=== PATIENT | female | born 1965 | race Two or more races ===

== ENCOUNTER 2024-06-18 20:11 | Emergency (ER) | payer BC, SELFPAY ==
[2024-06-18 20:12] VITALS: BP 122/78; PULSE 73; RESP 17; TEMP 36.7; O2SAT 96; BMI 34.0
--- NOTE | 2024-06-18 20:51 | XR_ITS ---
Examination: CT abdomen with intravenous contrast CT pelvis with intravenous contrast 2-D coronal reconstructions 2-D sagittal reconstructions Date and time of exam:June 18, 2024 1025 hrs. Indications: Onset left lower abdominal pain beginning 2 days ago. CTDI: vol (mGy) 10.9 DLP: (mGycm) 614 Technique: Multiple axial sections of the abdomen and pelvis have been obtained. 64 slice high-resolution scanner used. 3 mm axial sections have been obtained, post intravenous injection 60 cc [id number] 2-D sagittal, coronal reconstructions obtained. Low dose protocols were performed. One or more of the following dose reduction techniques were used; automated exposure control, adjustment of the mA and/or KV according to patient size, use of iterative reconstruction technique. Findings: No focal liver or splenic lesion Absent gallbladder No pancreatic mass No renal or ureteral calculi, no hydronephrosis Aorta normal size Normal appendix No bowel obstruction No diverticulitis Urinary bladder intact. Moderate osteopenia Impression: No renal or ureteral calculi, no hydronephrosis Normal appendix No bowel obstruction diverticulitis or free air
--- NOTE | 2024-06-18 20:52 | EDRME_ITS ---
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 Chief Complaint: Abdominal Pain Vital signs: Vital Signs Temperature 98.0 F 06/18/24 20:12 Pulse Rate 73 06/18/24 20:12 Respiratory Rate 17 06/18/24 20:12 Blood Pressure 122/78 06/18/24 20:12 Pulse Oximetry (%) 96 06/18/24 20:12 Oxygen Delivery Method Room Air 06/18/24 20:12
[2024-06-18 21:21] LABS: Collection Type, Urine Clean Catch; Squamous Epithelial Cell,Urine 0 /hpf (0-5); WBC,Urine 0 /hpf (0-5)
[2024-06-18 21:26] LABS: Basophils % (Auto) 1 % (0-2.5); Eosinophils # (Auto) 0.2 Thou/mm3 (0.0-0.5); Eosinophils % (Auto) 3 % (0-10); Hematocrit 42.2 % (36.0-46.0); Hemoglobin 14.1 g/dL (12.0-16.0); Immature Granulocytes % (Auto) 0 % (0-0); Immature Granulocytes Auto 0.02 Thou/mm3 (0.00-0.00); Lymphocytes # (Auto) 2.4 Thou/mm3 (1.0-4.8); Lymphocytes % (Auto) 31 % (10-50); Mean Corpuscular HGB Conc 33.4 g/dl (31.0-37.0); Mean Corpuscular Hemoglobin 27.9 pg (25.0-35.0); Mean Corpuscular Volume 84 fL (80-100); Monocytes # (Auto) 0.6 Thou/mm3 (0.0-0.8); Monocytes % (Auto) 7 % (0-12); Neutrophils # (Auto) 4.6 Thou/mm3 (1.8-7.7); Neutrophils % (Auto) 58 % (37-80); Nucleated Red Blood Cell % 0 /100 WBC (0); Platelet Count 225 Thou/mm3 (140-440); RDW Standard Deviation 40.9 fL (36.4-46.3); Red Blood Count 5.05 Miln/mm3 (4.00-5.20); White Blood Count 7.9 Thou/mm3 (3.6-11.0)
[2024-06-18 21:31] LABS: Bilirubin,Urine Negative (Negative); Blood,Urine Trace (Negative); Clarity,Urine Clear (Clear/Hazy); Color,Urine Colorless (Lt Yel-Yel); Culture Indicated,Urine Not Indicated; Glucose, Urine Negative (Negative); Ketones,Urine Negative (Negative); Leukocyte Esterase,Urine Negative (Negative); Nitrite,Urine Negative (Negative); PH,Urine 6.5 (5.0-7.0); Protein,Urine Negative (Neg - Trace); RBC,Urine 1 /hpf (0-3); Specific Gravity,Urine 1.007 (1.001-1.035); Urobilinogen,Urine Negative mg/dL (0.0-1.0)
[2024-06-18 21:44] LABS: Alanine Aminotransferase 19 U/L (10-49); Albumin, Serum 4.9 gm/dL (3.5-5.0); Albumin/Globulin Ratio 1.3 (1.2-2.2); Alkaline Phosphatase 90 U/L (46-116); Anion Gap 8 (7-16); Aspartate Amino Transferase 20 U/L (0-34); BUN/Creatinine Ratio 15 Ratio (12-20); Bilirubin,Total 0.7 mg/dL (0.3-1.2); Blood Urea Nitrogen 9 mg/dL (9-23); Calcium 10.4 mg/dL (8.3-10.6); Calcium (Corrected) 10.4 mg/dL (8.5-10.1); Chloride 99 mMol/L (98-107); Creatinine (Component) 0.6 mg/dL (0.6-1.3); Estimated Creatinine Clearance 107.1 mL/min (>60); Globulin 3.7 gm/dL (2.3-3.5); Glucose 90 mg/dL (74-106); Lipase 36 U/L (12-53); Osmolality,Calculated 268 (275-295); Potassium 3.9 mMol/L (3.4-5.1); Sodium 135 mMol/L (136-145); Total Protein 8.6 gm/dL (5.7-8.2); eGFR > 60 See Note
--- NOTE | 2024-06-18 23:27 | PD.EDABDPN ---
ED Abdominal Pain RME/HPI General Chief Complaint: Abdominal Pain Stated complaint: LEFT LOWER ABD PAIN X 2DAYS; SENT BY PCP Arrival date/time: 06/18/24 20:11 Limitations: no limitations RME / HPI RME / HPI narrative: Dr. Velez's Main ED Evaluation: 58-year-old female presenting with dysuria x 2 days. The patient states this is similar to when she had her UTI previously. The patient also states that she came in because she was worried that she could have possibly the fistula. She states that when she had her previous hysterectomy in the past it was complicated and she ended up getting a bowel resection with possible fistula. She is not complaining of any stool coming from the vagina, patient denies fevers. No CVA tenderness. She is not complaining of abdominal pain. She feels the dysuria is present at the end of urination. Increased frequency and urgency. PMHX: Hysterectomy, Passed a perforation requiring bowel resection in [place] approximately 3 years ago Related Data Previous Rx's ?Medication ?Instructions ?Recorded hydrocodone 5 mg-acetaminophen 325 1 tab PO Q4H PRN pain #20 tabs 07/21/20 mg tablet ([place]) cephalexin 500 mg capsule 500 mg PO TID #21 caps 06/19/24 Allergies Allergy/AdvReac Type Severity Reaction Status Date / Time ibuprofen Allergy Verified 06/18/24 20:15 Review of Systems Review of Systems Systems Reviewed: All systems reviewed, normal except as documented Past Medical History Past Medical History CARDIAC: Negative Cardiac Disorders RESPIRATORY: Negative Asthma GENITOURINARY: Negative Renal Disease ENDOCRINE: Negative Diabetes Mellitus Type 2 HEMATOLOGIC: Negative Sickle Cell Disease Social History SMOKING STATUS: Never smoker ED Exam Narrative Physical exam: Patient appears in no acute distress General Limitations: Present no limitations General appearance: Present alert; Absent appears intoxicated Head Head exam: Present atraumatic Eye Eye exam: Present normal appearance ENT ENT exam: Present normal exam, normal oropharynx and mucous membranes moist Neck Neck exam: Present normal inspection, full ROM and trachea midline Chest Chest inspection: Present normal inspection and symmetric chest wall rise Respiratory Respiratory exam: Present normal lung sounds bilaterally Cardiovascular Cardiovascular exam: Present regular rate and normal rhythm; Absent irregular rhythm Abdominal Exam Abdominal exam: Present soft and normal bowel sounds; Absent distention, tenderness, guarding, rebound, rigidity, diminished bowel sounds or tenderness at McBurney's Point Extremities Exam Extremities exam: Present normal inspection and full ROM Back Exam Back exam: Present normal inspection; Absent CVA tenderness (R) or CVA tenderness (L) Neurological Exam Neurological exam: Present alert, oriented X3 and CN II-XII intact Psychiatric Psychiatric exam: Present normal affect and normal mood Skin Skin exam: Present warm, dry, intact and normal color Course Course Course Narrative: Urinalysis is sent Quality Measures none Orders Category Date Time Status CT Screening NOW Care 06/18/24 20:51 Completed Insert IV NOW Care 06/18/24 20:[address] abdomen pelvis w con Stat Exams 06/18/24 20:51 Completed CBC Stat Lab 06/18/24 21:01 Completed CMP [Comprehensive Metabolic Panel] Stat Lab 06/18/24 21:01 Completed Lipase Stat Lab 06/18/24 21:01 Completed Urinalysis, C/S if Indicated Stat Lab 06/18/24 21:05 Completed cefTRIAXone [Rocephin] 1,000 mg Med 06/18/24 23:40 Discontinued Sodium Chloride 0.9% (P) [Ns 0.9% (P)] 50 ml IV X1 Vital Signs Vital signs: Vital Signs Temperature 98.0 F 06/18/24 20:12 Pulse Rate 73 06/18/24 20:12 Respiratory Rate 17 06/18/24 20:12 Blood Pressure 122/78 06/18/24 20:12 Pulse Oximetry (%) 96 06/18/24 20:12 Oxygen Delivery Method Room Air 06/18/24 20:12 Pulse ox is 96% on room air, which is normal according to my interpretation. Abdominal Pain MDM MDM Narrative MDM Narrative:: Differential diagnosis equals UTI, pyelonephritis, complication from her previous surgery, dehydration. Discussed with the patient. She is having dysuria. Even though the urine is not showing significant UTI she request that she be treated. The patient will follow-up with her primary care physician for urine culture results. Return precautions are given and understood. Patient data External records reviewed:: [facility] previous records (Per chart review, patient has no relevant previous ED visits or admissions to this facility.) Clinical information provided by:: patient Social determinants that could affect healthcare access:: none Patient has the following chronic illnesses:: none How is presenting disease/condition affected by chronic disease/condition?: no chronic disease Evaluation data The following diagnostics were reviewed and interpreted by me:: lab results and radiology exam(s) Lab and/or radiology exams considered but not ordered:: none Interpretation Summary: CBC is normal, CMP us normal, Lipase is normal, UA is unremarkable, according to my interpretation. ---- I have personally reviewed the radiology data and agree with the radiologist's interpretation below: [facility] Report Signed Patient: YOBANY POZO. Record#: [id number] Birthdate: 1965 Age/Sex: 58 / F [facility] Attending Dr: Ordering Physician: Leonardo Ohara PA-C Date of Service: 06/18/24 Procedure(s): CT abdomen pelvis w con Accession Number(s): [id number] cc: Wilfredo Kennedy MD; Savage Tavares MD; Leonardo Ohara PA-C~ Examination: CT abdomen with intravenous contrast CT pelvis with intravenous contrast 2-D coronal reconstructions 2-D sagittal reconstructions Date and time of exam:June 18, 2024 1025 hrs. Indications: Onset left lower abdominal pain beginning 2 days ago. CTDI: vol (mGy) 10.9 DLP: (mGycm) 614 Technique: Multiple axial sections of the abdomen and pelvis have been obtained. 64 slice high-resolution scanner used. 3 mm axial sections have been obtained, post intravenous injection 60 cc [id number] 2-D sagittal, coronal reconstructions obtained. Low dose protocols were performed. One or more of the following dose reduction techniques were used; automated exposure control, adjustment of the mA and/or KV according to patient size, use of iterative reconstruction technique. Findings: No focal liver or splenic lesion Absent gallbladder No pancreatic mass No renal or ureteral calculi, no hydronephrosis Aorta normal size Normal appendix No bowel obstruction No diverticulitis Urinary bladder intact. Moderate osteopenia Impression: No renal or ureteral calculi, no hydronephrosis Normal appendix No bowel obstruction diverticulitis or free air Dictated By: Savage Tavares MD Signed By: <Electronically signed by Savage Tavares MD in [place]> 06/18/24 0872 Medications / Prescriptions Medications or Prescriptions considered but not ordered:: none Medication administrations:: Medication Administration History Discontinued Medications Ceftriaxone Sodium 1,000 mg/ (Sodium Chloride) 50 mls @ 100 mls/hr IV X1 ONE Stop: 06/19/24 00:09 Last Admin: 06/18/24 23:46 Dose: 100 mls/hr Documented By: KG see above, if any Consultations Consultation(s) initiated? (list below): No Diagnosis Differential diagnosis abdominal pain: other (UTI, pyelonephritis, complications from previous surgery, dehydration) Most likely diagnosis given after review of the tests above:: see below Admission Indicated Admission indicated?: not indicated Admission Request Was there a request for admission?: No Disposition Plan Disposition Plan: Discharge Discharge Attestation Discharge Attestation: The patient and all family members were given an opportunity to ask questions and understood the discharge instructions. Discharge instructions specifically effects, indications for sooner follow up or return to the emergency department, and the expected course of current diagnosis. Patient condition: Stable Discharge Plan Plan Patient Disposition: HOME (Self Care) Patient condition on transfer: Stable Prescriptions/Referrals Prescriptions/Med Rec: New cephalexin 500 mg capsule 500 mg PO TID Qty: 21 0RF No Action hydrocodone-acetaminophen [[place]ilton] 5-325 mg tablet 1 tab PO Q4H MDD 1 tab every 4 hrs PRN (Reason: pain) Qty: 20 0RF Referrals: Wilfredo Kennedy MD [Primary Care Provider] - In 1 week Problem List Clinical Impression: UTI (urinary tract infection) Patient/Caregiver Discharge Instructions Education Materials: ED [facility] Female Adult Additional Instructions: Follow-up with your primary care physician in the next 1 week. A urine culture will be sent if it is positive we will call you to let you know that you need to switch antibiotics. Drink plenty of fluids so your urine is clear. Return to the emergency department if you are having fevers or any other concerns. Print Language: Amharic Stand Alone Forms: [employer] Award Info., Work/School Release, Patient Portal Info Letter
[2024-06-18] MEDS: cefTRIAXone 1,000 MG in SODIUM CHLORIDE 0.9% (P) 50 ML 100 MG IV (23:46)
[2024-06-19 00:20] VITALS: PULSE 68; RESP 18; O2SAT 97
== END 2024-06-19 00:21 | disposition home or self-care (01) ==
PROVIDERS: Physician Assistant; Emergency Provider Emergency Medicine; PCP Family Medicine
DX: N39.0 Urinary tract infection, site not specified (principal)
CPT/HCPCS: 36415; 74177; 80053; 81001; 83690; 85025; 99285; A4649; J0696; J7050; Q9967